=== PATIENT | male | born 1940 | race African-American/Black ===

== ENCOUNTER 2024-02-15 17:19 | Inpatient (IN) | payer MEDICARE, MEDICAID ==
[~2024-02-15] VITALS: Ht 165.1 cm; Wt 77.1 kg
[2024-02-15 17:21] VITALS: BP 92/52; PULSE 61; RESP 16; TEMP 98.4; O2SAT 97
[2024-02-15] MEDS: cefTRIAXone 1,000 MG in DEXT 5% MINI-BAG PLUS 50 ML IV ONE (17:25)
[2024-02-15 18:16] LABS: BASOPHILS % (AUTO) 0.7 % (0.0-2.0); EOSINOPHILS # (AUTO) 0.3 K/uL (0-0.4); HEMATOCRIT 46.1 % (36-52); HEMOGLOBIN 15.4 g/dL (12.0-18.0); LYMPHOCYTES # (AUTO) 1.4 K/uL (2.0-11.5); LYMPHOCYTES % (AUTO) 24.2 % (20.5-51.1); MEAN CORPUSCULAR HEMOGLOBIN 31 pg (27-31); MEAN CORPUSCULAR HGB CONC 33 g/dL (33-37); MONOCYTES # (AUTO) 0.5 K/uL (0.8-1.0); MONOCYTES % (AUTO) 8.8 % (1.7-9.3); NEUTROPHILS # (AUTO) 3.6 K/uL (1.8-7.7); NEUTROPHILS % (AUTO) 61.3 % (42.2-75.2); PLATELET COUNT (AUTO) 169 K/uL (140-450); RED BLOOD CELL COUNT(AUTO) 5.01 MIL/uL (4.20-6.10); RED CELL DISTRIBUTION WIDTH 14.1 % (11.6-13.7); WHITE BLOOD COUNT (AUTO) 5.9 K/uL (4.8-10.8)
[2024-02-15] MEDS: NACL 0.9% 1,000 ML IV SCH ×2 (18:18→23:46)
[2024-02-15] MEDS ORDERED: cefTRIAXone 1,000 MG VIAL ONE (18:20)
[2024-02-15 18:34] LABS: FLU A ANTIGEN negative (NEGATIVE); FLU B ANTIGEN negative (NEGATIVE)
[2024-02-15 18:34] LABS: ANION GAP 10.4 (8-16); CALCIUM 8.7 mg/dL (8.5-10.1); CARBON DIOXIDE 29.9 mmol/L (21-32); CHLORIDE 103 mmol/L (98-107); CREATININE 1.6 mg/dL (0.6-1.3); GLUCOSE 153 mg/dL (74-106); POTASSIUM 4.3 mmol/L (3.5-5.1); SODIUM SERUM 139 mmol/L (136-145); UREA NITROGEN, BLOOD 20 mg/dL (7-18)
[2024-02-15 18:45] LABS: LACTIC ACID 1.2 mmol/L (0.4-2.0)
[2024-02-15 18:53] LABS: ALANINE AMINOTRANSFERASE 23 U/L (12-78); ALBUMIN 3.1 g/dL (3.4-5.0); ALKALINE PHOSPHATASE 91 U/L (50-136); ASPARTATE AMINOTRANSFERASE 18 U/L (15-37); BILIRUBIN,DIRECT 0.1 mg/dL (0.0-0.3); TOTAL BILIRUBIN 0.3 mg/dL (0.0-1.0); TOTAL PROTEIN, SERUM 7.9 g/dL (6.4-8.2)
[2024-02-15] MEDS ORDERED: [UNRECOGNIZED DRUG - CODE] PO (19:37)
[2024-02-15] MEDS ORDERED: DONE10TA36 PO (19:37)
[2024-02-15] MEDS ORDERED: DOCU-299 PO (19:37)
[2024-02-15] MEDS ORDERED: METF-346 PO (19:37)
[2024-02-15] MEDS ORDERED: ACET-2619 PO (19:37)
[2024-02-15] MEDS ORDERED: CRAN450T5 PO (19:37)
[2024-02-15] MEDS ORDERED: ASPI-1822 PO (19:37)
[2024-02-15] MEDS ORDERED: TAMS0.4C96 PO (19:37)
[2024-02-15] MEDS ORDERED: BISA-213 RC (19:37)
[2024-02-15] MEDS ORDERED: METO25TA PO (19:37)
[2024-02-15] MEDS ORDERED: MAGN400S60 PO (19:37)
[2024-02-15] MEDS ORDERED: [UNRECOGNIZED DRUG - CODE] PO (19:37)
[2024-02-15] MEDS ORDERED: ONDANSETRON 4 MG/2 ML VIAL IVP PRN (20:50)
[2024-02-15] MEDS ORDERED: MORPHINE SULFATE 2 MG/ML SYR IVP PRN (20:50)
[2024-02-15] MEDS ORDERED: AZITHROMYCIN 500 MG in DEXTROSE 5% 250 ML IV SCH (20:50)
[2024-02-15] MEDS ORDERED: HYDROcodone/APAP 5/325 MG 1 TAB TAB PO PRN (20:50)
[2024-02-15] MEDS ORDERED: ACETAMINOPHEN 325 MG TAB PO PRN (20:50)
[2024-02-15] MEDS: diphenhydrAMINE 50 MG/ML VIAL IVP ONE (21:05)
[2024-02-15] MEDS ORDERED: AZITHROMYCIN 500 MG INJ VIAL IV ONE (22:08)
[2024-02-15 22:25] VITALS: PULSE 66; RESP 18; O2SAT 96
[2024-02-15] MEDS: LORazepam 2 MG/ML VIAL IVP PRN (23:00)
[2024-02-16] VITALS: BP 134/68; PULSE 66; RESP 18; TEMP 98.1; O2SAT 96
[2024-02-16 04:00] VITALS: BP 127/58; PULSE 60; RESP 18; TEMP 97.5; O2SAT 97
[2024-02-16 06:45] LABS: BASOPHILS % (AUTO) 0.4 % (0.0-2.0); EOSINOPHILS # (AUTO) 0.3 K/uL (0-0.4); EOSINOPHILS % (AUTO) 4.4 % (0.0-4.0); HEMOGLOBIN 14.1 g/dL (12.0-18.0); LYMPHOCYTES # (AUTO) 1.9 K/uL (2.0-11.5); LYMPHOCYTES % (AUTO) 27.8 % (20.5-51.1); MEAN CORPUSCULAR HEMOGLOBIN 31 pg (27-31); MEAN CORPUSCULAR HGB CONC 34 g/dL (33-37); MEAN CORPUSCULAR VOLUME 91.6 fL (80-94); MONOCYTES # (AUTO) 0.6 K/uL (0.8-1.0); MONOCYTES % (AUTO) 9.1 % (1.7-9.3); NEUTROPHILS % (AUTO) 58.3 % (42.2-75.2); PLATELET COUNT (AUTO) 153 K/uL (140-450); RED BLOOD CELL COUNT(AUTO) 4.48 MIL/uL (4.20-6.10); RED CELL DISTRIBUTION WIDTH 13.6 % (11.6-13.7); WHITE BLOOD COUNT (AUTO) 6.8 K/uL (4.8-10.8)
[2024-02-16 07:07] LABS: ALANINE AMINOTRANSFERASE 18 U/L (12-78); ALBUMIN 2.7 g/dL (3.4-5.0); ALKALINE PHOSPHATASE 70 U/L (50-136); ANION GAP 12.3 (8-16); ASPARTATE AMINOTRANSFERASE 14 U/L (15-37); CALCIUM 7.9 mg/dL (8.5-10.1); CARBON DIOXIDE 25.5 mmol/L (21-32); CHLORIDE 107 mmol/L (98-107); CREATININE 1.4 mg/dL (0.6-1.3); GLUCOSE 90 mg/dL (74-106); MAGNESIUM 1.9 mg/dL (1.8-2.4); POTASSIUM 3.8 mmol/L (3.5-5.1); SODIUM SERUM 141 mmol/L (136-145); TOTAL BILIRUBIN 0.3 mg/dL (0.0-1.0); TOTAL PROTEIN, SERUM 6.7 g/dL (6.4-8.2); UREA NITROGEN, BLOOD 18 mg/dL (7-18)
[2024-02-16 08:00] VITALS: BP 134/76; PULSE 53; RESP 18; TEMP 97.9; O2SAT 98
[2024-02-16] MEDS ORDERED: ENOXAPARIN 40 MG/0.4 ML SYR SUBQ SCH (09:00)
[2024-02-16] MEDS: ENOXAPARIN 30 MG/0.3 ML SYR SUBQ SCH (09:21)
[2024-02-16 14:36] LABS: APPEARANCE,URINE CLEAR (CLEAR); BILIRUBIN,URINE NEGATIVE (NEGATIVE); BLOOD, URINE 1+ (NEGATIVE); COLOR,URINE YELLOW (YELLOW); LEUKOCYTE ESTERASE ,URINE 2+ (NEGATIVE); NITRITE, URINE NEGATIVE (NEGATIVE); PROTEIN,URINE NEGATIVE (NEGATIVE); UGLUCOSE TRACE (NEGATIVE); UROBILINOGEN,URINE 0.2 EU/dL (0.2 - 1)
[2024-02-16 14:44] LABS: BACTERIA,URINE None Seen /HPF (None Seen); MUCUS,URINE None Seen /LPF (None Seen); SQUAMOUS EPITHELIAL CELL,UR 0-3 (FEW) /LPF (0-3 (FEW)); WBC,URINE 0-5 /HPF (0-5)
[2024-02-16 16:00] VITALS: BP 118/66; PULSE 58; RESP 18; TEMP 97.5; O2SAT 99
== END 2024-02-16 17:57 | disposition hospice, home (50) | DRG 640 ==
LOC: MED 17:19 → MTU 20:49 → MED 20:54 → MMU 20:54 → UNDOADMIN 20:54 → MTU 21:50 → MMU 21:50 → UNDODISIN 02-16 08:16 → MTU 02-16 08:50 → UNDOADMIN 02-16 08:50
PROVIDERS: ADMIT Hospitalist; ATTEND Hospitalist
DX: E86.0 Dehydration (principal); G93.41 Metabolic encephalopathy; J18.9 Pneumonia, unspecified organism; N17.9 Acute kidney failure, unspecified; E11.9 Type 2 diabetes mellitus without complications; Z20.822 Contact with and (suspected) exposure to COVID-19; I10 Essential (primary) hypertension; G30.9 Alzheimer's disease, unspecified; Z66 Do not resuscitate; F02.80 Dementia in other diseases classified elsewhere, unspecified severity, without behavioral disturbance, psychotic disturbance, mood disturbance, and anxiety; Z95.1 Presence of aortocoronary bypass graft; Z79.82 Long term (current) use of aspirin; Z79.899 Other long term (current) drug therapy; Z51.5 Encounter for palliative care
CPT/HCPCS: 36415; 70450; 71045; 73110; 80048; 80053; 80076; 81001; 83605; 83735; 83880; 84484; 85025; 87040; 87081; 87086; 93005; 96365; 96375; 99285; J0456; J0696; J1200; J1650; J2060; J7060; Q0092